=== PATIENT | male | born 1955 | race Caucasian/White ===

== ENCOUNTER → 2020-02-03 09:07 | Outpatient (CLI) | payer OTHER, SELFPAY ==
--- NOTE | 2020-02-03 09:07 | RAD_ITS ---
STUDY: X-RAY - LEFT HAND, ATTENTION MIDDLE FINGER REASON FOR EXAM: Bump/pain of distal finger. TECHNIQUE: 3 view(s) of the finger were obtained. COMPARISON: None. FINDINGS: Normal metacarpal head. Normal metacarpophalangeal joint. Normal proximal phalanx. Normal middle phalanx. Normal distal phalanx. Normal proximal interphalangeal joint. There are small marginal osteophytes without joint space narrowing of the distal interphalangeal joint. There is a soft tissue mass at the dorsal ulnar aspect of the distal phalanx without soft tissue calcifications. RAD/Finger(s) Min 2 Views IMPRESSION: Soft tissue mass of the distal finger. Small marginal osteophytes of the distal interphalangeal joint. Electronically Signed: Willi Kate MD at 11:13 EDT Tel , Service support ,
== END ==
PROVIDERS: PCP Family Medicine; Referring Provider Orthopaedic Surgery; Visit Provider Orthopaedic Surgery
DX: M79.645 Pain in left finger(s) (principal)
CPT/HCPCS: 73140